=== PATIENT | male | born 1955 | race Caucasian/White ===

== ENCOUNTER 2017-08-22 07:29 | Outpatient (CLI) | payer OTHER ==
[2017-08-22 08:00] LABS: BASOPHILS # (AUTO) 0.1 10^3/uL (0.0-0.1); BASOPHILS % (AUTO) 1.1 %; EOSINOPHILS # (AUTO) 0.4 10^3/uL (0.0-0.7); EOSINOPHILS % (AUTO) 6.3 %; HGB - HEMOGLOBIN 16.4 g/dL (14.0-18.0); LYMPHOCYTES # (AUTO) 1.2 10^3/uL (1.5-3.5); MEAN CORPUSCULAR HEMOGLOBIN 30.7 pg (27.0-31.0); MEAN CORPUSCULAR HGB CONC 34.2 g/dL (32.0-36.0); MEAN CORPUSCULAR VOLUME 89.7 fL (80.0-94.0); MEAN PLATELET VOLUME 8.9 fL (7.4-11.4); MONOCYTES # (AUTO) 0.4 10^3/uL (0.0-1.0); MONOCYTES % (AUTO) 6.9 %; NEUTROPHILS # (AUTO) 3.6 10^3/uL (1.5-6.6); NEUTROPHILS % (AUTO) 63.7 %; NUCLEATED RED BLOOD CELLS AUTO 0.1 /100WBC; RED BLOOD COUNT 5.35 10^6/uL (4.70-6.10); RED CELL DISTRIBUTION WIDTH 13.4 % (12.0-15.0); UNCORRECTED WHITE BLOOD COUNT 5.6 x10^3/uL; WHITE BLOOD COUNT 5.6 x10^3/uL (4.8-10.8)
[2017-08-22 08:24] LABS: HEMOGLOBIN A1C 0.58 g/dL
[2017-08-22 09:35] LABS: BILIRUBIN,TOTAL 1.5 mg/dL (0.2-1.0); BUN - BLOOD UREA NITROGEN 13 mg/dL (6-20); CALCIUM 9.3 mg/dL (8.5-10.3); CARBON DIOXIDE - CO2 26 mmol/L (21-32); CHLORIDE 101 mmol/L (101-111); CHOL/HDL RATIO 3.6 (<5.0); CHOLESTEROL 199 mg/dL; CREATININE 0.9 mg/dL (0.6-1.2); GFR - MDRD 86 (>89); GLUCOSE 101 mg/dL (70-100); HDL CHOLESTEROL 56 mg/dL; LDL/HDL RATIO 2.1 (<3.6); POTASSIUM 4.1 mmol/L (3.5-5.0); SODIUM 136 mmol/L (135-145); TOTAL PROTEIN 6.7 g/dL (6.7-8.2); TRIGLYCERIDES 121 mg/dL; VLDL CHOLESTEROL 24 mg/dL
== END 2017-08-22 07:30 | disposition home or self-care (01) ==
LOC: LAB 07:29
PROVIDERS: ATTEND Family Medicine
DX: Z00.00 Encounter for general adult medical examination without abnormal findings (principal); I10 Essential (primary) hypertension; R73.01 Impaired fasting glucose; Z12.5 Encounter for screening for malignant neoplasm of prostate
CPT/HCPCS: 36415; 80053; 80061; 83036; 84153; 85025

== ENCOUNTER 2019-09-17 08:49 | Outpatient (CLI) | payer OTHER ==
[2019-09-17 09:32] LABS: HB2 TOTAL 16.3 g/dL; HEMOGLOBIN A1C 0.62 g/dL; HEMOGLOBIN A1C % 5.6 % (4.6-6.2)
[2019-09-17 09:33] LABS: BASOPHILS % (AUTO) 0.9 %; EOSINOPHILS # (AUTO) 0.3 10^3/uL (0.0-0.7); EOSINOPHILS % (AUTO) 5.8 %; LYMPHOCYTES # (AUTO) 0.9 10^3/uL (1.5-3.5); LYMPHOCYTES % (AUTO) 21.4 %; MEAN CORPUSCULAR HEMOGLOBIN 31.4 pg (27.0-31.0); MEAN CORPUSCULAR HGB CONC 34.1 g/dL (32.0-36.0); MEAN CORPUSCULAR VOLUME 92.1 fL (80.0-94.0); MEAN PLATELET VOLUME 10.3 fL (7.4-11.4); MONOCYTES # (AUTO) 0.4 10^3/uL (0.0-1.0); MONOCYTES % (AUTO) 8.2 %; NEUTROPHILS # (AUTO) 2.7 10^3/uL (1.5-6.6); NEUTROPHILS % (AUTO) 63.5 %; PLT - PLATELET COUNT 185 10^3/uL (130-450); RED BLOOD COUNT 5.09 10^6/uL (4.70-6.10); RED CELL DISTRIBUTION WIDTH 13.5 % (12.0-15.0); WHITE BLOOD COUNT 4.3 x10^3/uL (4.8-10.8)
[2019-09-17 09:44] LABS: ALBUMIN 4.5 g/dL (3.2-5.5); ALBUMIN/GLOBULIN RATIO 1.7 (1.0-2.2); ALKALINE PHOSPHATASE 45 IU/L (42-121); ALT ALANINE AMINOTRANSFERASE 34 IU/L (10-60); AST ASPARTATE AMINOTRANSFERASE 24 IU/L (10-42); BILIRUBIN,TOTAL 1.7 mg/dL (0.2-1.0); BUN - BLOOD UREA NITROGEN 16 mg/dL (6-20); CALCIUM 9.1 mg/dL (8.5-10.3); CARBON DIOXIDE - CO2 25 mmol/L (21-32); CHLORIDE 104 mmol/L (101-111); CHOL/HDL RATIO 3.6 (<5.0); CHOLESTEROL 189 mg/dL; CREATININE 0.8 mg/dL (0.6-1.2); GFR - MDRD 97 (>89); GLUCOSE 109 mg/dL (70-100); HDL CHOLESTEROL 53 mg/dL; LDL CHOLESTEROL,CALCULATED 116 mg/dL; LDL/HDL RATIO 2.2 (<3.6); SODIUM 136 mmol/L (135-145); TOTAL PROTEIN 7.2 g/dL (6.7-8.2); VLDL CHOLESTEROL 20 mg/dL
== END 2019-09-17 08:50 | disposition home or self-care (01) ==
LOC: LAB 08:49
PROVIDERS: ATTEND Family Medicine
DX: I10 Essential (primary) hypertension (principal); R73.01 Impaired fasting glucose; R07.89 Other chest pain; Z12.5 Encounter for screening for malignant neoplasm of prostate
CPT/HCPCS: 36415; 80053; 80061; 83036; 83721; 84153; 84443; 85025

== ENCOUNTER 2020-11-21 12:14 | Outpatient (CLI) | payer MEDICARE ==
--- NOTE | 2020-11-21 18:02 | XRAY Report ---
PROCEDURE: Wrist 4 View RT INDICATIONS: PAIN IN RT WRIST TECHNIQUE: 4 views of the wrist were acquired. COMPARISON: None FINDINGS: Bones: No fractures or dislocations. No suspicious bony lesions. Scaphoid view: Scaphoid is intact. Soft tissues: No suspicious soft tissue calcifications. IMPRESSION: No fracture. No osseous lesion. If there are persistent symptoms or continued clinical concern for pa thology, then repeat plain film radiographs (7-10 days) or advanced imaging (CT, MR, bone scan) shoul d be considered for further evaluation. Reviewed by: Janis Sahrif MD, PhD on 11/21/2020 6:01 PM PDT Approved by: Janis Sharif MD, PhD on 11/21/2020 6:01 PM PDT Station ID: [id number]
== END 2020-11-21 12:15 | disposition home or self-care (01) ==
LOC: DI 12:14
PROVIDERS: ATTEND Internal Medicine
DX: M25.531 Pain in right wrist (principal)

== ENCOUNTER 2021-06-14 07:55 | Outpatient (CLI) | payer MEDICARE ==
[2021-06-14 08:14] LABS: BASOPHILS % (AUTO) 0.8 %; EOSINOPHILS # (AUTO) 0.2 10^3/uL (0.0-0.7); EOSINOPHILS % (AUTO) 3.5 %; HCT - HEMATOCRIT 49.6 % (42.0-52.0); HGB - HEMOGLOBIN 16.9 g/dL (14.0-18.0); LYMPHOCYTES # (AUTO) 0.7 10^3/uL (1.5-3.5); LYMPHOCYTES % (AUTO) 15.4 %; MEAN CORPUSCULAR HEMOGLOBIN 31.6 pg (27.0-31.0); MEAN CORPUSCULAR HGB CONC 34.1 g/dL (32.0-36.0); MEAN CORPUSCULAR VOLUME 92.9 fL (80.0-94.0); MONOCYTES # (AUTO) 0.4 10^3/uL (0.0-1.0); MONOCYTES % (AUTO) 8.6 %; NEUTROPHILS # (AUTO) 3.4 10^3/uL (1.5-6.6); NEUTROPHILS % (AUTO) 71.3 %; PLT - PLATELET COUNT 183 10^3/uL (130-450); RED BLOOD COUNT 5.34 10^6/uL (4.70-6.10); RED CELL DISTRIBUTION WIDTH 13.2 % (12.0-15.0); WHITE BLOOD COUNT 4.8 x10^3/uL (4.8-10.8)
[2021-06-14 08:31] LABS: ALBUMIN 4.7 g/dL (3.2-5.5); ALKALINE PHOSPHATASE 53 IU/L (42-121); ALT ALANINE AMINOTRANSFERASE 33 IU/L (10-60); AST ASPARTATE AMINOTRANSFERASE 22 IU/L (10-42); BILIRUBIN,TOTAL 2.1 mg/dL (0.2-1.0); BUN - BLOOD UREA NITROGEN 14 mg/dL (6-20); CALCIUM 9.3 mg/dL (8.5-10.3); CARBON DIOXIDE - CO2 26 mmol/L (21-32); CHLORIDE 105 mmol/L (101-111); CHOLESTEROL 197 mg/dL; GFR - MDRD 75 (>89); GLUCOSE 117 mg/dL (70-100); HDL CHOLESTEROL 49 mg/dL; LDL CHOLESTEROL,CALCULATED 125 mg/dL; LDL/HDL RATIO 2.6 (<3.6); POTASSIUM 4.4 mmol/L (3.5-5.0); SODIUM 140 mmol/L (135-145); TOTAL PROTEIN 7.1 g/dL (6.7-8.2); TRIGLYCERIDES 116 mg/dL; VLDL CHOLESTEROL 23 mg/dL
[2021-06-14 08:43] LABS: THYROID STIMULATING HORMONE 3.4 uIU/mL (0.34-5.60)
[2021-06-14 09:20] LABS: CREATININE,URINE 27.1 mg/dL; MICROALBUM/CREATININE RATIO,UR 7.4 ug/mg (<30.0); MICROALBUMIN,URINE 0.2 mg/dL (0-300.0)
[2021-06-14 12:47] LABS: ESTIMATED AVERAGE GLUCOSE 105 mg/dL (70-100); HEMOGLOBIN A1c% 5.3 % (4.27-6.07)
== END 2021-06-14 07:56 | disposition home or self-care (01) ==
LOC: LAB 07:55
PROVIDERS: ATTEND Internal Medicine
DX: R73.01 Impaired fasting glucose (principal); N40.0 Benign prostatic hyperplasia without lower urinary tract symptoms
CPT/HCPCS: 36415; 80053; 80061; 82043; 82570; 83036; 83721; 84153; 84443; 85025

== ENCOUNTER 2022-03-28 08:00 | Outpatient (CLI) | payer MEDICARE ==
[2022-03-28 12:00] LABS: BASOPHILS % (AUTO) 0.3 %; EOSINOPHILS % (AUTO) 0.3 %; HCT - HEMATOCRIT 47.6 % (42.0-52.0); HGB - HEMOGLOBIN 16.2 g/dL (14.0-18.0); LYMPHOCYTES # (AUTO) 0.6 10^3/uL (1.5-3.5); LYMPHOCYTES % (AUTO) 4.8 %; MEAN CORPUSCULAR HEMOGLOBIN 31.1 pg (27.0-31.0); MEAN CORPUSCULAR VOLUME 91.4 fL (80.0-94.0); MONOCYTES # (AUTO) 0.5 10^3/uL (0.0-1.0); MONOCYTES % (AUTO) 3.8 %; NEUTROPHILS # (AUTO) 11.1 10^3/uL (1.5-6.6); NEUTROPHILS % (AUTO) 90.3 %; PLT - PLATELET COUNT 190 10^3/uL (130-450); RED BLOOD COUNT 5.21 10^6/uL (4.70-6.10); RED CELL DISTRIBUTION WIDTH 13.3 % (12.0-15.0); WHITE BLOOD COUNT 12.3 x10^3/uL (4.8-10.8)
[2022-03-28 12:06] LABS: GLUCOSE, URINE (UA) NEGATIVE (NEGATIVE); LEUKOCYTE ESTERASE, URINE NEGATIVE (NEGATIVE); OCCULT BLOOD,URINE NEGATIVE (NEGATIVE)
[2022-03-28 12:09] LABS: BILIRUBIN,URINE NEGATIVE (NEGATIVE); CLARITY,URINE SL. CLOUDY (CLEAR); ICTOTEST,URINE NEGATIVE
[2022-03-28 12:11] LABS: BACTERIA,URINE Moderate /HPF (None Seen); MUCUS,URINE Moderate Strands; RBC,URINE 0-5 /HPF (0-5); SQUAMOUS EPITHELIAL CELL,UR RARE Squamous (<= Few); WBC,URINE 0-3 /HPF (0-3)
[2022-03-28 12:17] LABS: ALBUMIN 3.9 g/dL (3.2-5.5); ALBUMIN/GLOBULIN RATIO 1.1 (1.0-2.2); BILIRUBIN,TOTAL 3.8 mg/dL (0.2-1.0); CALCIUM 9.3 mg/dL (8.5-10.3); CREATININE 0.9 mg/dL (0.6-1.2); POTASSIUM 3.7 mmol/L (3.5-5.0); TOTAL PROTEIN 7.4 g/dL (6.7-8.2)
== END 2022-03-28 23:59 | disposition home or self-care (01) ==
LOC: LAB.N 08:00
PROVIDERS: ATTEND Nurse Practitioner
DX: R10.9 Unspecified abdominal pain (principal)
CPT/HCPCS: 36415; 80053; 81001; 81003; 82150; 83690; 85025; 87086

== ENCOUNTER 2022-03-30 08:50 | Emergency (ER) | payer MEDICARE ==
[2022-03-30 09:21] LABS: CLARITY,URINE CLEAR (CLEAR); GLUCOSE, URINE (UA) NEGATIVE (NEGATIVE); KETONES,URINE (UA) TRACE mg/dL (NEGATIVE); LEUKOCYTE ESTERASE, URINE NEGATIVE (NEGATIVE); NITRITE,URINE NEGATIVE (NEGATIVE); OCCULT BLOOD,URINE SMALL (NEGATIVE); PROTEIN,URINE TRACE mg/dL (NEGATIVE); UROBILINOGEN,URINE 0.2 (NORMAL) E.U./dL (NORMAL)
--- NOTE | 2022-03-30 09:23 | ED Physician Documentation ---
PD HPI ABD PAIN - Stated complaint Stated Complaint: LOWER ABD PAIN - Chief complaint Chief Complaint: Abd Pain - History obtained from History obtained from: Patient - History of Present Illness Timing - onset: How many days ago (4) Timing - duration: Days (4 days - was camping at onset in [facility] and thought maybe bad water or food, but symptoms have persisted. Seen at Walk In 2 days ago with labs/UA but no meds Rx.) Timing - details: Gradual onset, Still present, Waxing and waning Quality: Cramping, Aching, Pain Location: Periumbilical, Suprapubic. No: Epigastric Radiation: Lower back Improved by: Laying still, Vomiting, BM. No: Eating Worsened by: Moving, Palpation. No: Eating Associated symptoms: Nausea, Vomiting (just couple of times 3-4 days ago, now with nausea.). No: Fever, Diarrhea, Constipation (has had small stools out without noted blood nor mucous.) Similar symptoms before: Has not had sx before Recently seen: Clinic (Walk In clinic 2 days ago with labs/UA done. No meds given. Patient says he had not heard results as yet.) Review of Systems Constitutional: denies: Fever, Chills Nose: denies: Rhinorrhea / runny nose, Congestion Throat: denies: Sore throat Cardiac: denies: Chest pain / pressure Respiratory: denies: Dyspnea, Cough GI: reports: Abdominal Pain, Nausea, Vomiting. denies: Constipation, Diarrhea, Bloody / black stool : denies: Dysuria, Frequency Skin: denies: Rash, Lesions Neurologic: reports: Generalized weakness. denies: Focal weakness, Near syncope, Altered mental status, Headache PD PAST MEDICAL HISTORY - Past Medical History Cardiovascular: None GI: None : Kidney stones - Past Surgical History Past Surgical History: No - Present Medications Home Medications: Ambulatory Orders Medication Instructions Recorded Confirmed Amox/Clav 875/125 [Augmentin] 1 each PO Q12H #14 tablet 03/30/22 Docusate Sodium 100Mg Capsule 100 mg PO DAILY #15 cap 03/30/22 [Colace 100Mg Capsule] HYDROcod/ACETAM 5/325 [[place] 5/325] 1 ea PO Q6H PRN #15 tablet 03/30/22 Naproxen 500 mg PO BID #20 tab.sr 03/30/22 Ondansetron Odt [Zofran] 4 mg TL Q6H PRN #10 tablet 03/30/22 - Allergies Allergies/Adverse Reactions: Allergies Allergy/AdvReac Type Severity Reaction Status Date / Time No Known Drug Allergies Allergy Verified 03/30/22 09:12 PD ED PE NORMAL - Vitals Vital signs reviewed: Yes - General General: Alert and oriented X 3, No acute distress, Well developed/nourished - HEENT HEENT: Moist mucous membranes, Pharynx benign - Neck Neck: Supple, no meningeal sign, No adenopathy - Cardiac Cardiac: RRR, No murmur - Respiratory Respiratory: Clear bilaterally - Abdomen Abdomen: Normal bowel sounds, Soft, Non distended, No organomegaly, Other (Tender in the periumbilical to left lower quadrant area in particular. Mild tender in the right. No percussion or rebound tenderness. There is some local guarding.) - Male Male : Deferred - Rectal Rectal: Deferred - Back Back: No CVA TTP - Derm Derm: Normal color, Warm and dry - Extremities Extremities: No edema, No calf tenderness / cord - Neuro Neuro: Alert and oriented X 3, No motor deficit, Normal speech Results - Vitals Vitals: Vital Signs - 24 hr 03/30/22 09:07 Temperature 36.1 C L Heart Rate 87 Respiratory 16 Rate Blood Pressure 141/79 H O2 Saturation 98 Oxygen O2 Source Room air - Labs Labs: Laboratory Tests 03/30/22 03/30/22 03/30/22 09:12 09:21 09:21 WBC 6.4 RBC 5.38 Hgb 16.5 Hct 48.9 MCV 90.9 MCH 30.7 MCHC 33.7 RDW 13.2 Plt Count 241 MPV 9.8 Neut # (Auto) 5.0 Lymph # (Auto) 0.7 L [place] # (Auto) 0.6 Eos # (Auto) 0.2 Baso # (Auto) 0.0 Absolute Nucleated RBC 0.00 Nucleated RBC % 0.0 Sodium 141 Potassium 3.5 Chloride 103 Carbon Dioxide 28 Anion Gap 10.0 BUN 20 Creatinine 0.9 Estimated GFR (MDRD) 84 L Glucose 156 H Calcium 9.5 Total Bilirubin 1.6 H AST 38 ALT 71 H Alkaline Phosphatase 80 Total Protein 7.8 Albumin 3.8 Globulin 4.0 Albumin/Globulin Ratio 1.0 Lipase 35 Urine Color DARK YELLOW Urine Clarity CLEAR Urine pH 6.0 Ur Specific Fidelity 1.025 Urine Protein TRACE Urine Glucose (UA) NEGATIVE Urine Ketones TRACE Urine Occult Blood SMALL H Urine Nitrite NEGATIVE Urine Bilirubin NEGATIVE Urine Urobilinogen 0.2 (NORMAL) Ur Leukocyte Esterase NEGATIVE Urine RBC 11-25 H Urine WBC 0-3 Ur Squamous Epith Cells RARE Squamous Urine Bacteria Few Urine Mucus Moderate Strands Ur Microscopic Review INDICATED Urine Culture Comments NOT INDICATED - Rads (name of study) abd/pelvic CT Radiology: Prelim report reviewed, See rad report (sigmoid diverticulitis. Terminal ileum is normal. No kidney stones. ) PD MEDICAL DECISION MAKING - ED course Complexity details: reviewed results (Given duration of symptoms and degree of pain, after discussion with the patient, shared decision was for anti- inflammatories and also to add antibiotics.), re-evaluated patient (improved well with IV meds. ), considered differential, d/w patient Departure - Departure Disposition: 01 Home, Self Care Clinical Impression: Sigmoid diverticulitis Abdominal pain Qualifiers: Abdominal location: lower abdomen, unspecified Qualified Code(s): R10.30 - Lower abdominal pain, unspecified Condition: Stable Instructions: ED Diverticulitis Follow-Up: Luis Felipe Acuna MD [Primary Care Provider] - Prescriptions: Amox/Clav 875/125 [Augmentin] 1 each PO Q12H #14 tablet Docusate Sodium 100Mg Capsule [Colace 100Mg Capsule] 100 mg PO DAILY #15 cap Naproxen 500 mg PO BID #20 tab.sr HYDROcod/ACETAM 5/325 [[place] 5/325] 1 ea PO Q6H PRN #15 tablet PRN Reason: Pain Ondansetron Odt [Zofran] 4 mg TL Q6H PRN #10 tablet PRN Reason: Nausea / Vomiting Comments: Your CT scan shows an area of infection of a diverticulum in the sigmoid area (sigmoid diverticulitis). No kidney stones are seen. Your appendix area appears normal. There is no signs of perforation or abscess around the diverticulitis. This would typically get treated with some mild stool softener along with anti- inflammatories and staying well-hydrated. We can add Augmentin antibiotic twice daily. To this add ondansetron/Zofran every 6 hours if needed for nausea and Tylenol or hydrocodone/acetaminophen if needed for worse pain. I would anticipate improvement over the next 2 to 3 days and resolution by 3 to 5 days. You can resume your normal fiber supplement. Recheck if not improving in that timeframe and return if worse. It transmitted your prescriptions to [facility] pharmacy in [place]. I am prescribing a short course of narcotic pain medication for you. These are potentially dangerous and addictive medications that should be used carefully. These medications may constipate you. Take an umoc-evi-mibtaab stool softener such as docusate twice daily with plenty of water while taking these medications. If you go 24 hours without a bowel movement, take mxbi-tby-rflocht MiraLAX, per package instructions. Do not drink or drive while taking these medications. If you received narcotic or sedating medications while in the emergency department do not drive for 24 hours. Store this medication in a safe, secure place and out of reach of children. It is a violation of federal law to give or sell this medication to another person or to use in a manner other than prescribed. The ED will not refill narcotic prescriptions, including prescriptions lost or stolen. You can dispose of unwanted medications at the [facility]'s office or at several pharmacies such as [facility].
[2022-03-30 09:24] LABS: BILIRUBIN,URINE NEGATIVE (NEGATIVE); ICTOTEST,URINE NEGATIVE
[2022-03-30 09:31] LABS: BASOPHILS % (AUTO) 0.5 %; EOSINOPHILS # (AUTO) 0.2 10^3/uL (0.0-0.7); EOSINOPHILS % (AUTO) 2.6 %; HCT - HEMATOCRIT 48.9 % (42.0-52.0); HGB - HEMOGLOBIN 16.5 g/dL (14.0-18.0); LYMPHOCYTES # (AUTO) 0.7 10^3/uL (1.5-3.5); LYMPHOCYTES % (AUTO) 10.1 %; MEAN CORPUSCULAR HEMOGLOBIN 30.7 pg (27.0-31.0); MEAN CORPUSCULAR HGB CONC 33.7 g/dL (32.0-36.0); MEAN CORPUSCULAR VOLUME 90.9 fL (80.0-94.0); MEAN PLATELET VOLUME 9.8 fL (7.4-11.4); MONOCYTES # (AUTO) 0.6 10^3/uL (0.0-1.0); MONOCYTES % (AUTO) 9.3 %; NEUTROPHILS % (AUTO) 77.2 %; PLT - PLATELET COUNT 241 10^3/uL (130-450); RED BLOOD COUNT 5.38 10^6/uL (4.70-6.10); RED CELL DISTRIBUTION WIDTH 13.2 % (12.0-15.0); WHITE BLOOD COUNT 6.4 x10^3/uL (4.8-10.8)
[2022-03-30 09:35] LABS: BACTERIA,URINE Few /HPF (None Seen); MUCUS,URINE Moderate Strands; SQUAMOUS EPITHELIAL CELL,UR RARE Squamous (<= Few); WBC,URINE 0-3 /HPF (0-3)
[2022-03-30 09:50] LABS: ALBUMIN 3.8 g/dL (3.2-5.5); BILIRUBIN,TOTAL 1.6 mg/dL (0.2-1.0); CALCIUM 9.5 mg/dL (8.5-10.3); CREATININE 0.9 mg/dL (0.6-1.2); POTASSIUM 3.5 mmol/L (3.5-5.0); TOTAL PROTEIN 7.8 g/dL (6.7-8.2)
[2022-03-30] MEDS ORDERED: KETOROLAC 15 MG/ML VIAL IVP STA (09:50)
[2022-03-30] MEDS ORDERED: SODIUM CHLORIDE 0.9% 1,000 ML IV STA (09:50)
[2022-03-30] MEDS ORDERED: HYDROmorphone 0.5 MG/0.5 ML SYRINGE IVP STA (09:50)
[2022-03-30] MEDS ORDERED: ONDANSETRON 4 MG/2 ML VIAL IVP STA (09:50)
--- NOTE | 2022-03-30 10:22 | CT Report ---
PROCEDURE: Abdomen/Pelvis WO INDICATIONS: lower abd pain 4 days TECHNIQUE: After the administration of contrast, 5 mm thick sections acquired from the diaphragms to the sym physis. 5 mm thick coronal and sagittal reformats were acquired. For radiation dose reduction, the following was used: automated exposure control, adjustment of mA and/or kV according to patient size . COMPARISON: None. FINDINGS: Image quality: Excellent. ABDOMEN: Lung bases: Lung bases are clear. Heart size is normal. Solid organs: Liver: The liver has no mass or intrahepatic biliary ductal dilatation. The portal vein and hepatic veins are patent. Biliary: The gallbladder has no gallstones, pericholecystic fluid, gallbladder wall thickening, or gutierrez rrounding inflammatory change. Pancreas: The pancreas has no mass or ductal dilatation. No surrounding inflammation. Spleen: Normal size. No mass. Adrenal glands: No hypertrophy or nodules. Kidneys: No obstructive calculus or hydronephrosis. No solid mass. No cystic mass. Bowel: The distal esophagus and stomach are normal. The small bowel has a normal caliber and appeara nce. The terminal ileum is normal. There is diverticulosis in the left colon and sigmoid colon with surrounding inflammation in the proximal sigmoid colon consistent with acute diverticulitis. No evid ence of perforation or abscess. Free air/free fluid: No free air or free fluid. Abdominal wall: No abdominal wall mass or hernia. Retroperitoneum: No retroperitoneal or mesenteric adenopathy by size criteria. Aorta and inferior ve na cava are normal in size. Lymph nodes: No adenopathy. Bones: No suspicious bony lesions. No vertebral body compression fractures. PELVIS: Genitourinary: Bladder wall thickness is normal. Miscellaneous: No inguinal hernias or adenopathy. Bones: No suspicious bony lesions. No vertebral body compression fractures. IMPRESSION: Acute diverticulitis of the sigmoid colon without evidence of perforation or abscess. Reviewed by: Gavin Roman on 03/30/2022 10:21 AM PDT Approved by: Gavin Roman on 03/30/2022 10:21 AM PDT Station ID: [id number]
[2022-03-30] MEDS ORDERED: AMOX/CLAV 875 MG/125 MG TABLET PO STA (10:53)
[2022-03-30 11:24] VITALS: BP 122/84
== END 2022-03-30 11:27 | disposition home or self-care (01) ==
LOC: ED 08:50
DX: K57.32 Diverticulitis of large intestine without perforation or abscess without bleeding (principal)
CPT/HCPCS: 36415; 74176; 80053; 81001; 83690; 85025; 96374; 99284; A9270; J1170; 81003; 87086

== ENCOUNTER 2022-07-18 17:17 | Outpatient (CLI) | payer MEDICARE ==
[2022-07-18 17:39] LABS: BASOPHILS # (AUTO) 0.1 10^3/uL (0.0-0.1); BASOPHILS % (AUTO) 0.9 %; EOSINOPHILS # (AUTO) 0.3 10^3/uL (0.0-0.7); EOSINOPHILS % (AUTO) 4.3 %; HCT - HEMATOCRIT 50.5 % (42.0-52.0); HGB - HEMOGLOBIN 16.5 g/dL (14.0-18.0); LYMPHOCYTES # (AUTO) 1.7 10^3/uL (1.5-3.5); LYMPHOCYTES % (AUTO) 26.1 %; MEAN CORPUSCULAR HEMOGLOBIN 29.7 pg (27.0-31.0); MEAN CORPUSCULAR HGB CONC 32.7 g/dL (32.0-36.0); MEAN CORPUSCULAR VOLUME 90.8 fL (80.0-94.0); MEAN PLATELET VOLUME 9.8 fL (7.4-11.4); MONOCYTES # (AUTO) 0.5 10^3/uL (0.0-1.0); NEUTROPHILS % (AUTO) 61.4 %; PLT - PLATELET COUNT 210 10^3/uL (130-450); RED BLOOD COUNT 5.56 10^6/uL (4.70-6.10); RED CELL DISTRIBUTION WIDTH 13.9 % (12.0-15.0); WHITE BLOOD COUNT 6.5 x10^3/uL (4.8-10.8)
[2022-07-18 17:58] LABS: CREATININE,URINE 150.4 mg/dL; MICROALBUMIN,URINE 0.6 mg/dL (0-300.0)
[2022-07-18 17:58] LABS: ALBUMIN 4.7 g/dL (3.2-5.5); ALBUMIN/GLOBULIN RATIO 1.5 (1.0-2.2); ALKALINE PHOSPHATASE 52 IU/L (42-121); ALT ALANINE AMINOTRANSFERASE 48 IU/L (10-60); AST ASPARTATE AMINOTRANSFERASE 29 IU/L (10-42); BILIRUBIN,TOTAL 2.5 mg/dL (0.2-1.0); BUN - BLOOD UREA NITROGEN 18 mg/dL (6-20); CALCIUM 9.2 mg/dL (8.5-10.3); CARBON DIOXIDE - CO2 25 mmol/L (21-32); CHLORIDE 101 mmol/L (101-111); CHOL/HDL RATIO 4.3 (<5.0); CHOLESTEROL 234 mg/dL; CREATININE 0.9 mg/dL (0.6-1.2); GFR - MDRD 84 (>89); GLUCOSE 92 mg/dL (70-100); HDL CHOLESTEROL 54 mg/dL; LDL CHOLESTEROL,CALCULATED 156 mg/dL; LDL/HDL RATIO 2.9 (<3.6); POTASSIUM 3.9 mmol/L (3.5-5.0); SODIUM 137 mmol/L (135-145); TOTAL PROTEIN 7.9 g/dL (6.7-8.2); TRIGLYCERIDES 122 mg/dL; VLDL CHOLESTEROL 24 mg/dL
[2022-07-18 20:30] LABS: ESTIMATED AVERAGE GLUCOSE 111 mg/dL (70-100); HEMOGLOBIN A1c% 5.5 % (4.27-6.07)
== END 2022-07-18 17:18 | disposition home or self-care (01) ==
LOC: LAB 17:17
PROVIDERS: ATTEND Internal Medicine
DX: R73.01 Impaired fasting glucose (principal); Z13.220 Encounter for screening for lipoid disorders; N40.1 Benign prostatic hyperplasia with lower urinary tract symptoms; Z13.0 Encounter for screening for diseases of the blood and blood-forming organs and certain disorders involving the immune mechanism
CPT/HCPCS: 36415; 80053; 80061; 82043; 82570; 83036; 83721; 84153; 85025

== ENCOUNTER 2022-10-08 14:46 | Outpatient (CLI) | payer MEDICARE ==
[2022-10-08 15:10] LABS: BASOPHILS # (AUTO) 0.1 10^3/uL (0.0-0.1); BASOPHILS % (AUTO) 0.9 %; EOSINOPHILS # (AUTO) 0.2 10^3/uL (0.0-0.7); EOSINOPHILS % (AUTO) 2.2 %; HGB - HEMOGLOBIN 14.7 g/dL (14.0-18.0); LYMPHOCYTES # (AUTO) 1.3 10^3/uL (1.5-3.5); LYMPHOCYTES % (AUTO) 18.3 %; MEAN CORPUSCULAR HEMOGLOBIN 29.7 pg (27.0-31.0); MEAN CORPUSCULAR VOLUME 92.9 fL (80.0-94.0); MONOCYTES # (AUTO) 0.5 10^3/uL (0.0-1.0); MONOCYTES % (AUTO) 6.9 %; NEUTROPHILS # (AUTO) 4.9 10^3/uL (1.5-6.6); NEUTROPHILS % (AUTO) 71.3 %; PLT - PLATELET COUNT 257 10^3/uL (130-450); RED BLOOD COUNT 4.95 10^6/uL (4.70-6.10); RED CELL DISTRIBUTION WIDTH 13.8 % (12.0-15.0); WHITE BLOOD COUNT 6.9 x10^3/uL (4.8-10.8)
[2022-10-08 15:16] LABS: ALBUMIN 4.2 g/dL (3.2-5.5); ALBUMIN/GLOBULIN RATIO 1.3 (1.0-2.2); BILIRUBIN,TOTAL 1.3 mg/dL (0.2-1.0); CALCIUM 9.5 mg/dL (8.5-10.3); CRP - C-REACTIVE PROTEIN 1.2 mg/dL (0-1.0); POTASSIUM 3.8 mmol/L (3.5-5.0); TOTAL PROTEIN 7.4 g/dL (6.7-8.2)
== END 2022-10-08 14:47 | disposition home or self-care (01) ==
LOC: LAB 14:46
PROVIDERS: ATTEND Nurse Practitioner
DX: M25.50 Pain in unspecified joint (principal); U09.9 Post COVID-19 condition, unspecified
CPT/HCPCS: 36415; 80053; 85025; 85379; 85651; 86140

== ENCOUNTER 2022-10-24 16:42 | Outpatient (CLI) | payer MEDICARE ==
[2022-10-24 17:15] LABS: BASOPHILS % (AUTO) 0.6 %; EOSINOPHILS # (AUTO) 0.2 10^3/uL (0.0-0.7); EOSINOPHILS % (AUTO) 2.8 %; HCT - HEMATOCRIT 46.2 % (42.0-52.0); HGB - HEMOGLOBIN 14.9 g/dL (14.0-18.0); LYMPHOCYTES # (AUTO) 1.5 10^3/uL (1.5-3.5); LYMPHOCYTES % (AUTO) 22.3 %; MEAN CORPUSCULAR HEMOGLOBIN 29.4 pg (27.0-31.0); MEAN CORPUSCULAR HGB CONC 32.3 g/dL (32.0-36.0); MEAN CORPUSCULAR VOLUME 91.3 fL (80.0-94.0); MEAN PLATELET VOLUME 9.9 fL (7.4-11.4); MONOCYTES # (AUTO) 0.5 10^3/uL (0.0-1.0); MONOCYTES % (AUTO) 7.3 %; NEUTROPHILS # (AUTO) 4.4 10^3/uL (1.5-6.6); NEUTROPHILS % (AUTO) 66.6 %; PLT - PLATELET COUNT 278 10^3/uL (130-450); RED BLOOD COUNT 5.06 10^6/uL (4.70-6.10); WHITE BLOOD COUNT 6.7 x10^3/uL (4.8-10.8)
[2022-10-24 17:30] LABS: ALBUMIN 4.4 g/dL (3.2-5.5); ALBUMIN/GLOBULIN RATIO 1.4 (1.0-2.2); ALKALINE PHOSPHATASE 60 IU/L (42-121); ALT ALANINE AMINOTRANSFERASE 25 IU/L (10-60); AST ASPARTATE AMINOTRANSFERASE 19 IU/L (10-42); BILIRUBIN,TOTAL 1.3 mg/dL (0.2-1.0); BUN - BLOOD UREA NITROGEN 18 mg/dL (6-20); CALCIUM 9.9 mg/dL (8.5-10.3); CARBON DIOXIDE - CO2 25 mmol/L (21-32); CHLORIDE 99 mmol/L (101-111); CREATININE 0.9 mg/dL (0.6-1.2); GFR - MDRD 84 (>89); GLUCOSE 95 mg/dL (70-100); POTASSIUM 4.2 mmol/L (3.5-5.0); SODIUM 136 mmol/L (135-145); TOTAL PROTEIN 7.6 g/dL (6.7-8.2)
[2022-10-24 18:08] LABS: CRP - C-REACTIVE PROTEIN < 1.0 mg/dL (0-1.0)
[2022-10-24 18:13] LABS: RHEUMATOID FACTOR NEGATIVE (Negative)
--- NOTE | 2022-10-25 08:35 | XRAY Report ---
PROCEDURE: Shoulder 3 View RT INDICATIONS: PAIN IN RIGHT SHOULDER TECHNIQUE: 3 views of the shoulder were acquired. COMPARISON: None. FINDINGS: Bones: No fractures or dislocations. Moderate acromioclavicular joint osteoarthritic changes are see n with joint space narrowing, subchondral sclerosis and downward osteophyte formation. Mild to modera te glenohumeral joint osteoarthritis is also noted. No suspicious bony lesions. Visualized ribs maximo ear intact. Soft tissues: No suspicious soft tissue calcifications. IMPRESSION: Moderate acromioclavicular joint osteoarthritis and mild to moderate glenohumeral joint osteoarthritis. No fracture or dislocation. No gross soft tissue abnormalities. Reviewed by: Brian Weston MD on 10/25/2022 8:34 AM PST Approved by: Brian Weston MD on 10/25/2022 8:34 AM PST Station ID: [id number]
== END 2022-10-24 16:43 | disposition home or self-care (01) ==
LOC: LAB 16:42
PROVIDERS: ATTEND Internal Medicine
DX: R73.01 Impaired fasting glucose (principal); M25.50 Pain in unspecified joint; M25.511 Pain in right shoulder; M19.011 Primary osteoarthritis, right shoulder
CPT/HCPCS: 36415; 80053; 81599; 85025; 85651; 86038; 86140; 86200; 86430

== ENCOUNTER 2022-12-26 15:54 | Outpatient (CLI) | payer MEDICARE ==
--- NOTE | 2022-12-26 16:36 | XRAY Report ---
PROCEDURE: Hips 2V BILAT INDICATIONS: HIP JOIT PAIN TECHNIQUE: 2 views of the hip were acquired. COMPARISON: None. FINDINGS: Bones: No fractures or dislocations. No suspicious bony lesions. Moderate degenerative narrowing of the hip joints bilaterally. No erosions. Soft tissues: No suspicious soft tissue calcifications or masses. IMPRESSION: Moderate bilateral hip arthritic change. Reviewed by: Mariah Martinez MD on 12/26/2022 4:35 PM PDT Approved by: Mariah Martinez MD on 12/26/2022 4:35 PM PDT Station ID: [id number]
== END 2022-12-26 15:55 | disposition home or self-care (01) ==
LOC: DI 15:54
PROVIDERS: ATTEND Internal Medicine
DX: M16.0 Bilateral primary osteoarthritis of hip (principal)

== ENCOUNTER 2023-03-16 03:23 | Emergency (ER) | payer MEDICARE ==
--- OUTSIDE RECORDS SUMMARY | 2023-03-16 03:31 | EXTERNAL MEDICAL SUMMARY RPT | Continuity of Care Document ---
Author Name Unknown Address [address] [place] [address] Phone Organization [facility] Address [address] [place] [address] Phone Problems date description facility 2023-02-12 18:18 Impingement syndrome of right s [facility] 2023-02-13 09:21 Impingement syndrome of right s [facility] Results/Labs test date author facility value unit interpretation Result panel 1 (unknown) (no date) (unknown) (unknown) (no value) (units unknown) (unknown) (unknown) (no date) (unknown) (unknown) 02/13/23 (units unknown) (unknown) (unknown) (no date) (unknown) (unknown) 1. Supraspinat us and infraspinatus tendinopathy with superimposed partial (units unknown) (unknown) (unknown) (no date) (unknown) (unknown) [address] [place] [address] (un its unknown) (unknown) (unknown) (no date) (unknown) (unknown) 2. Acromioclav icular joint osteoarthritis. (units unknown) (unknown) (unknown) (no date) (unknown) (unknown) 3. Posterior l abral tearing. (units unknown) (unknown) (unknown) (no date) (unknown) (unknown) Accession Numb er: [id number] (units unknown) (unknown) (unknown) (no date) (unknown) (unknown) Age/Sex: 67 / M Date of Service: (units unknown) (unknown) (unknown) (no date) (unknown) (unknown) JUANA Murphy [id number] (units unknown) (unknown) (unknown) (no date) (unknown) (unknown) Approved by: Antolin Miles M.D. on 02/13/2023 at 10:40 (units unknown) (unknown) (unknown) (no date) (unknown) (unknown) Bones and burs ae: No bone marrow contusions or fractures. Moderate (units unknown) (unknown) (unknown) (no date) (unknown) (unknown) COMPARISON: None. (u nits unknown) (unknown) (unknown) (no date) (unknown) (unknown) Capsule and so ft tissues: There is undercutting of the posterior labrum. The (units unknown) (unknown) (unknown) (no date) (unknown) (unknown) : Acct:[id number] (units unknown) (unknown) (unknown) (no date) (unknown) (unknown) Dictated by: Antolin Miles M.D. on 02/13/2023 at 10:38 (units unknown) (unknown) (unknown) (no date) (unknown) (unknown) FINDINGS: (units unknown) (unknown) (unknown) (no date) (unknown) (unknown) IMPRESSION: (units unknown) (unknown) (unknown) (no date) (unknown) (unknown) INDICATIONS: Impingement syndrome of right shoulder (units unknown) (unknown) (unknown) (no date) (unknown) (unknown) Image quality: Excellent. (units unknown) (unknown) (unknown) (no date) (unknown) (unknown) [facility] (uni ts unknown) (unknown) (unknown) (no date) (unknown) (unknown) Loc: MRI (units unknown) (unknown) (unknown) (no date) (unknown) (unknown) [id number] (units unknown) (unknown) (unknown) (no date) (unknown) (unknown) Magnetic Reson ance Report (units unknown) (unknown) (unknown) (no date) (unknown) (unknown) Noncontrast ob lique coronal T2 fast spin echo with fat saturation, oblique (units unknown) (unknown) (unknown) (no date) (unknown) (unknown) Ordering Provi sumeet: Arron Rey MD (units unknown) (unknown) (unknown) (no date) (unknown) (unknown) PROCEDURE: MR SHOULDER RT WO CON (units unknown) (unknown) (unknown) (no date) (unknown) (unknown) Patient: Ruy Salter MR#: (units unknown) (unknown) (unknown) (no date) (unknown) (unknown) Procedure: MR shoulder RT wo con (units unknown) (unknown) (unknown) (no date) (unknown) (unknown) Rotator cuff: There is moderate T2 signal elevation diffusely throughout the (units unknown) (unknown) (unknown) (no date) (unknown) (unknown) Signed (units unknown) (unknown) (unknown) (no date) (unknown) (unknown) TECHNIQUE: (units unknown) (unknown) (unknown) (no date) (unknown) (unknown) acromiale. No pathologic subacromial-subdeltoid or subcoracoid bursal fluid is (units unknown) (unknown) (unknown) (no date) (unknown) (unknown) acromioclavicular (u nits unknown) (unknown) (unknown) (no date) (unknown) (unknown) anterior infra spinatus tendon at the humeral insertion site. Subscapularis and (units unknown) (unknown) (unknown) (no date) (unknown) (unknown) appears normal , without fibrosis. The coracohumeral ligament is normal in (units unknown) (unknown) (unknown) (no date) (unknown) (unknown) as the (units unknown) (unknown) (unknown) (no date) (unknown) (unknown) echo with fat saturation through the shoulder. (units unknown) (unknown) (unknown) (no date) (unknown) (unknown) fast spin (units unknown) (unknown) (unknown) (no date) (unknown) (unknown) grade (units unknown) (unknown) (unknown) (no date) (unknown) (unknown) interval (units unknown) (unknown) (unknown) (no date) (unknown) (unknown) intrasubstance tearing of the anterior, mid, and posterior supraspinatus as well (units unknown) (unknown) (unknown) (no date) (unknown) (unknown) joint degenera tion. The acromion demonstrates conventional anatomy, without an (units unknown) (unknown) (unknown) (no date) (unknown) (unknown) long head (units unknown) (unknown) (unknown) (no date) (unknown) (unknown) minor tendons are intact. No rotator cuff atrophy. (units unknown) (unknown) (unknown) (no date) (unknown) (unknown) musculotendino us junctions, indicating tendinopathy. Superimposed moderate (units unknown) (unknown) (unknown) (no date) (unknown) (unknown) of the biceps tendon demonstrates normal location and morphology. The rotator (units unknown) (unknown) (unknown) (no date) (unknown) (unknown) os (units unknown) (unknown) (unknown) (no date) (unknown) (unknown) present. (units unknown) (unknown) (unknown) (no date) (unknown) (unknown) sagittal T1 (units unknown) (unknown) (unknown) (no date) (unknown) (unknown) spin echo and T2 fast spin echo with fat saturation, axial T1 spin echo and T2 (units unknown) (unknown) (unknown) (no date) (unknown) (unknown) supraspinatus and infraspinatus tendons at the humeral insertion sites extending (units unknown) (unknown) (unknown) (no date) (unknown) (unknown) tearing. No full-thickness rotator cuff tear. (units unknown) (unknown) (unknown) (no date) (unknown) (unknown) teres (units unknown) (unknown) (unknown) (no date) (unknown) (unknown) thickness (units unknown) (unknown) (unknown) (no date) (unknown) (unknown) thickness. (units unknown) (unknown) (unknown) (no date) (unknown) (unknown) to the (units unknown) (unknown)
[2023-03-16] MEDS ORDERED: SODIUM CHLORIDE 0.9% 1,000 ML IV STA ×3 (03:44→14:36)
[2023-03-16] MEDS ORDERED: ONDANSETRON 4 MG/2 ML VIAL IVP STA ×2 (03:44→10:26)
[2023-03-16 03:51] LABS: BASOPHILS % (AUTO) 0.3 %; EOSINOPHILS % (AUTO) 0.1 %; HCT - HEMATOCRIT 53.8 % (42.0-52.0); HGB - HEMOGLOBIN 18.5 g/dL (14.0-18.0); LYMPHOCYTES % (AUTO) 6.4 %; MEAN CORPUSCULAR HEMOGLOBIN 30.7 pg (27.0-31.0); MEAN CORPUSCULAR HGB CONC 34.4 g/dL (32.0-36.0); MEAN CORPUSCULAR VOLUME 89.2 fL (80.0-94.0); MEAN PLATELET VOLUME 10.8 fL (7.4-11.4); MONOCYTES % (AUTO) 6.2 %; NEUTROPHILS % (AUTO) 86.6 %; PLT - PLATELET COUNT 334 10^3/uL (130-450); RED BLOOD COUNT 6.03 10^6/uL (4.70-6.10); RED CELL DISTRIBUTION WIDTH 15.9 % (12.0-15.0); WHITE BLOOD COUNT 21.2 x10^3/uL (4.8-10.8)
[2023-03-16 03:54] LABS: ABNORMAL LYMPHS % (MANUAL) 0 %
[2023-03-16] MEDS ORDERED: HYDROmorphone 1 MG/ML CARPUJECT IVP STA ×4 (04:00→13:43)
[2023-03-16] MEDS ORDERED: iohexoL-300 100 ML VIAL ONE (04:08)
[2023-03-16 04:32] LABS: ALBUMIN 4.8 g/dL (3.2-5.5); ALBUMIN/GLOBULIN RATIO 1.4 (1.0-2.2); ALKALINE PHOSPHATASE 61 IU/L (42-121); ALT ALANINE AMINOTRANSFERASE 115 IU/L (10-60); AST ASPARTATE AMINOTRANSFERASE 129 IU/L (10-42); BILIRUBIN,TOTAL 3.3 mg/dL (0.2-1.0); BUN - BLOOD UREA NITROGEN 18 mg/dL (6-20); CARBON DIOXIDE - CO2 26 mmol/L (21-32); CHLORIDE 100 mmol/L (101-111); CREATININE 1.2 mg/dL (0.6-1.2); GFR - MDRD 60 (>89); GLUCOSE 218 mg/dL (70-100); LIPASE > 4800 U/L (22-51); SODIUM 141 mmol/L (135-145); TOTAL PROTEIN 8.2 g/dL (6.7-8.2)
[2023-03-16 04:38] LABS: BAND NEUTROPHILS % (MANUAL) 6 %; DIFFERENTIAL COMMENT MANUAL DIFFERENTIAL; LYMPHOCYTES # (MANUAL) 1.7 10^3/uL (1.5-3.5); LYMPHOCYTES % (MANUAL) 8 %; MONOCYTES # (MANUAL) 1.1 10^3/uL (0.0-1.0); NEUTROPHILS # (MANUAL) 18.4 10^3/uL (1.5-6.6); PLATELET ESTIMATE, MANUAL NORMAL (130-450,000) (NORMAL); RBC MORPHOLOGY (MULTIPLE) NORMAL APPEARANCE (NORMAL)
[2023-03-16] MEDS ORDERED: cefTRIAXone 1 GM in SODIUM CHLORIDE 0.9% MINIBAG 100 ML IV STA (05:00)
[2023-03-16] MEDS ORDERED: cefTRIAXone 1 GM VIAL ONE (05:19)
--- NOTE | 2023-03-16 05:56 | ED Physician Documentation ---
History of Present Illness - Stated complaint Stated Complaint: NAUSEA/ABD PX - Chief complaint Chief Complaint: Abd Pain - Additonal information Additional information: Patient 67-year-old male past medical significant for diverticulitis and kidney stones presenting with chief complaint abdominal pain. Began at around midnight this evening. Reports pain started lower but has now spread throughout the entire abdomen. Nausea without vomiting. No diarrhea. No fever. Denies previous surgical history. Last p.o. intake was last night. Does report drinks 2 alcoholic beverages daily. Review of Systems Constitutional: denies: Fever Eyes: denies: Loss of vision Ears: denies: Loss of hearing Nose: denies: Rhinorrhea / runny nose Throat: denies: Dental pain / toothache Cardiac: denies: Chest pain / pressure GI: reports: Abdominal Pain, Nausea, Vomiting. denies: Constipation, Diarrhea : denies: Dysuria Skin: denies: Rash Musculoskeletal: denies: Neck pain PD PAST MEDICAL HISTORY - Past Medical History Cardiovascular: None GI: None : Kidney stones - Past Surgical History Past Surgical History: No - Present Medications Home Medications: Ambulatory Orders Medication Instructions Recorded Confirmed Amox/Clav 875/125 [Augmentin] 1 each PO Q12H #14 tablet 03/30/22 Docusate Sodium 100Mg Capsule 100 mg PO DAILY #15 cap 03/30/22 [Colace 100Mg Capsule] HYDROcod/ACETAM 5/325 [[place] 5/325] 1 ea PO Q6H PRN #15 tablet 03/30/22 Naproxen 500 mg PO BID #20 tab.sr 03/30/22 Ondansetron Odt [Zofran] 4 mg TL Q6H PRN #10 tablet 03/30/22 - Allergies Allergies/Adverse Reactions: Allergies Allergy/AdvReac Type Severity Reaction Status Date / Time No Known Drug Allergies Allergy Verified 03/30/22 09:12 - Social History Does the pt smoke?: No Smoking Status: Never smoker Does the pt drink ETOH?: Yes PD ED PE NORMAL - Vitals Vital signs reviewed: Yes - General General: Alert and oriented X 3, Well developed/nourished - HEENT HEENT: Atraumatic, PERRL, EOMI, Ears normal, Moist mucous membranes - Neck Neck: Supple, no meningeal sign, No JVD - Cardiac Cardiac: RRR, No murmur - Respiratory Respiratory: No respiratory distress, Clear bilaterally - Abdomen Abdomen: Other (Significant diffuse tenderness with guarding) - Male Male : Deferred - Rectal Rectal: Deferred - Back Back: No CVA TTP - Extremities Extremities: No deformity - Neuro Neuro: Alert and oriented X 3, psychologist counseling 2-12 intact, No motor deficit, No sensory deficit, Normal speech Results - Vitals Vitals: Oxygen O2 Source Room air - Labs Labs: Laboratory Tests 03/16/23 03/16/23 03/16/23 03:45 03:45 03:45 WBC 21.2 H RBC 6.03 Hgb 18.5 H Hct 53.8 H MCV 89.2 MCH 30.7 MCHC 34.4 RDW 15.9 H Plt Count 334 MPV 10.8 Neut # (Auto) Not Reportable Lymph # (Auto) Not Reportable [place]mullen # (Auto) Not Reportable Eos # (Auto) Not Reportable Baso # (Auto) Not Reportable Absolute Nucleated RBC Not Reportable Total Counted 100 Band Neuts % (Manual) 6 Abnorm Lymph % (Manual) 0 Nucleated RBC % Not Reportable Neutrophils # (Manual) 18.4 H Lymphocytes # (Manual) 1.7 Monocytes # (Manual) 1.1 H Eosinophils # (Manual) 0.0 Basophils # (Manual) 0.0 Differential Comment MANUAL DIFFERENTIAL Platelet Estimate NORMAL (130-450,000) RBC Morph Micro Appear NORMAL APPEARANCE Sodium 141 Potassium 4.0 Chloride 100 L Carbon Dioxide 26 Anion Gap 15.0 H BUN 18 Creatinine 1.2 Estimated GFR (MDRD) 60 L Glucose 218 H Lactic Acid Calcium 10.0 Total Bilirubin 3.3 H AST 129 H ALT 115 H Alkaline Phosphatase 61 Total Protein 8.2 Albumin 4.8 Globulin 3.3 Albumin/Globulin Ratio 1.4 Lipase > 4800 H Ethyl Alcohol < 5.0 03/16/23 04:11 WBC RBC Hgb Hct MCV MCH MCHC RDW Plt Count MPV Neut # (Auto) Lymph # (Auto) [place]mullen # (Auto) Eos # (Auto) Baso # (Auto) Absolute Nucleated RBC Total Counted Band Neuts % (Manual) Abnorm Lymph % (Manual) Nucleated RBC % Neutrophils # (Manual) Lymphocytes # (Manual) Monocytes # (Manual) Eosinophils # (Manual) Basophils # (Manual) Differential Comment Platelet Estimate RBC Morph Micro Appear Sodium Potassium Chloride Carbon Dioxide Anion Gap BUN Creatinine Estimated GFR (MDRD) Glucose Lactic Acid 4.7 H* Calcium Total Bilirubin AST ALT Alkaline Phosphatase Total Protein Albumin Globulin Albumin/Globulin Ratio Lipase Ethyl Alcohol PD Medical Decision Making - ED course Complexity details: reviewed results, re-evaluated patient, considered differential, d/w patient ED course: Patient is 67-year-old male presenting to the emergency department with acute onset abdominal pain. Afebrile, hemodynamically stable. Significant distress with great deal of abdominal tenderness and guarding on exam. IV access was established. Given IV hydromorphone to monitor carefully after this medication as well as IV hydration and medication for nausea. Subsequently identified to have acute appendicitis. There is an elevation in LFTs and T. bili. Patient does report that he drinks on a daily basis although denies any recent binge drinking episodes. This could account for his elevation in LFTs however possibility for gallstone pancreatitis should be evaluated. Ultrasonography is pending at this time to the right upper quadrant. We will be signing out to the oncoming physician, please see their documentation for further detail. Departure - Departure Disposition: 02 Transfer Acute Care Hosp Clinical Impression: Pancreatitis, Leukocytosis, Cholecystitis, Lactic acidosis Condition: Serious Discharge Date/Time: 03/16/23 19:05
[2023-03-16] MEDS: metroNIDAZOLE 500 MG/100 ML 500 MG/100 ML BAG IV SCH ×2 (06:06→13:05)
[2023-03-16] MEDS ORDERED: iohexoL-300 100 ML VIAL IVP ONE (06:07)
[2023-03-16] MEDS ORDERED: HYDROmorphone 0.5 MG/0.5 ML SYRINGE IVP STA (06:15)
--- NOTE | 2023-03-16 08:37 | CT Report ---
PROCEDURE: ABDOMEN/PELVIS W INDICATIONS: abd pain CONTRAST: Omni 300 100ml TECHNIQUE: After the administration of contrast, 5 mm thick sections acquired from the diaphragms to the symphys is. 5 mm thick coronal and sagittal reformats were acquired. For radiation dose reduction, the foll owing was used: automated exposure control, adjustment of mA and/or kV according to patient size. COMPARISON: None FINDINGS: Image quality: Excellent. Lung bases and heart: Unremarkable. Liver: No solid mass. Gallbladder and biliary tree: Normal Spleen: No splenomegaly. Pancreas: There is fat stranding adjacent to the head and body of the pancreas and surrounding the se cond portion of the duodenum. No gas or calcification within the pancreatic bed. No pseudocyst. No pa ncreatic ductal dilatation. Adrenals: No adrenal nodule. Kidneys and ureters: No hydronephrosis. No renal cystic lesion which requires follow up. No solid mas s. Bowel and peritoneum: No bowel distension. No pathologic free fluid. Lymph nodes: No central or retroperitoneal adenopathy. Vessels: No infrarenal aortic aneurysm. PELVIS Reproductive organs: Unremarkable. Bladder: No abnormal wall thickening, accounting for underdistension. Pelvic lymph nodes: No pelvic adenopathy by size criteria. Bones: No aggressive osseous abnormality. Other: No significant ventral or inguinal hernia. IMPRESSION: Acute pancreatitis suspected. No pseudocyst or other complication. Findings above correspond with preliminary findings by [facility]. Reviewed by: Gavin Roman on 03/16/2023 7:36 AM NATASHA Approved by: Gavin Roman on 03/16/2023 7:36 AM NATASHA Station ID: [id number]
[2023-03-16] MEDS ORDERED: ONDANSETRON 4 MG/2 ML VIAL ONE (10:33)
--- NOTE | 2023-03-16 11:30 | Ultrasound Report ---
PROCEDURE: Abdomen Limited INDICATIONS: gall stones, pancreatitis TECHNIQUE: Real-time focused scanning was performed of the abdomen, with image documentation. COMPARISONS: None. FINDINGS: Liver: The liver has a normal size. Hepatic parenchyma demonstrates increased echogenicity consisten t with hepatic steatosis. Gallbladder: The gallbladder contains multiple echogenic foci which are nonmobile and adherent to the gallbladder wall. These measure up to 10 mm. Biliary ducts: Intrahepatic bile ducts are non-dilated. Extrahepatic bile duct caliber measures 6.4 mm. Normal is 6-7 mm or less in diameter, or 10 mm or less post-cholecystectomy. Pancreas: Not well visualized due to bowel gas. Right kidney: Normal in size and echotexture. Right kidney measures 10.8 cm long. No hydronephrosis or nephrolithiasis. No solid masses. No complex renal cystic lesions which require follow-up. Aorta: Not well seen. IVC: Intrahepatic inferior vena cava is patent. Miscellaneous: No free abdominal fluid. IMPRESSION: 1. No acute ultrasound abnormality. 2. Hepatic steatosis. 3. Gallbladder polyps versus stones. Given the size, recommend nonemergent surgical referral. Reviewed by: Gavin Roman on 03/16/2023 10:29 AM NATASHA Approved by: Gavin Roman on 03/16/2023 10:29 AM NATASHA Station ID: [id number]
--- NOTE | 2023-03-16 13:19 | ED Physician Documentation ---
ED Addendum - Addendum Addendum: 03/16/23 13:16 The patient was signed out to me at change of shift, pending ultrasound and final disposition after presenting to the emergency department with abdominal pain and nausea and being found to have elevated LFTs, lipase, white count, and lactic acid level. CT scan head showed significant pancreatitis with widespread edema and gallstones. Ultrasound was pending at the time of signout and subsequently showed thickening of the gallbladder wall but only partial visualization of the common bile duct. No obvious stone or dilatation. I discussed the case with both Dr. Chirinos and Dr. Izquierdo and ultimately, it was decided that the best plan for this patient was transfer. I subsequently spoke with Dr. Munira Mcgrath, the on-call hospitalist at [facility], and she stated that she would accept the patient in transfer. At this point in time, patient is waiting bed assignment and will be transferred. He has been advised of the plan. Final impression: 1. Pancreatitis 2. Cholecystitis 3. Lactic acidosis 4. Leukocytosis. Disposition: Transfer to [facility] in serious condition.
[2023-03-16] MEDS ORDERED: HYDROmorphone 1 MG/ML CARPUJECT IVP PRN (18:01)
[2023-03-16 18:38] VITALS: BP 149/90
== END 2023-03-16 19:05 | disposition short-term general hospital (02) ==
LOC: ED 03:23
DX: K85.90 Acute pancreatitis without necrosis or infection, unspecified (principal); D72.829 Elevated white blood cell count, unspecified; K81.9 Cholecystitis, unspecified; E87.20 Acidosis, unspecified
CPT/HCPCS: 36415; 74177; 76705; 80053; 83605; 83690; 85025; 96365; 96366; 96375; 96376; 99284; 99285; G0480; J1170; Q9967; 80320

== ENCOUNTER 2023-04-04 11:31 | Outpatient (CLI) | payer MEDICARE ==
[2023-04-04 11:46] LABS: BASOPHILS % (AUTO) 0.4 %; EOSINOPHILS # (AUTO) 0.2 10^3/uL (0.0-0.7); EOSINOPHILS % (AUTO) 2.3 %; HCT - HEMATOCRIT 43.7 % (42.0-52.0); HGB - HEMOGLOBIN 14.3 g/dL (14.0-18.0); LYMPHOCYTES # (AUTO) 1.1 10^3/uL (1.5-3.5); LYMPHOCYTES % (AUTO) 11.5 %; MEAN CORPUSCULAR HEMOGLOBIN 30.5 pg (27.0-31.0); MEAN CORPUSCULAR HGB CONC 32.7 g/dL (32.0-36.0); MEAN CORPUSCULAR VOLUME 93.2 fL (80.0-94.0); MEAN PLATELET VOLUME 9.4 fL (7.4-11.4); MONOCYTES # (AUTO) 0.6 10^3/uL (0.0-1.0); MONOCYTES % (AUTO) 6.2 %; NEUTROPHILS # (AUTO) 7.6 10^3/uL (1.5-6.6); NEUTROPHILS % (AUTO) 78.1 %; PLT - PLATELET COUNT 505 10^3/uL (130-450); RED BLOOD COUNT 4.69 10^6/uL (4.70-6.10); RED CELL DISTRIBUTION WIDTH 14.6 % (12.0-15.0); WHITE BLOOD COUNT 9.8 x10^3/uL (4.8-10.8)
[2023-04-04 11:56] LABS: ALBUMIN 3.7 g/dL (3.2-5.5); BILIRUBIN,TOTAL 0.9 mg/dL (0.2-1.0); CALCIUM 9.7 mg/dL (8.5-10.3); CREATININE 0.7 mg/dL (0.6-1.3); POTASSIUM 4.1 mmol/L (3.5-4.5); TOTAL PROTEIN 7.4 g/dL (6.4-8.9)
== END 2023-04-04 11:32 | disposition home or self-care (01) ==
LOC: LAB 11:31
PROVIDERS: ATTEND Internal Medicine
DX: K85.90 Acute pancreatitis without necrosis or infection, unspecified (principal)
CPT/HCPCS: 36415; 80053; 82150; 83690; 85025

== ENCOUNTER 2023-08-07 09:06 | Outpatient (CLI) | payer MEDICARE ==
[2023-08-07 09:26] LABS: EOSINOPHILS # (AUTO) 0.1 10^3/uL (0.0-0.7); EOSINOPHILS % (AUTO) 3.5 %; HCT - HEMATOCRIT 51.1 % (42.0-52.0); HGB - HEMOGLOBIN 16.3 g/dL (14.0-18.0); LYMPHOCYTES # (AUTO) 0.9 10^3/uL (1.5-3.5); LYMPHOCYTES % (AUTO) 21.7 %; MEAN CORPUSCULAR HEMOGLOBIN 28.2 pg (27.0-31.0); MEAN CORPUSCULAR HGB CONC 31.9 g/dL (32.0-36.0); MEAN CORPUSCULAR VOLUME 88.3 fL (80.0-94.0); MEAN PLATELET VOLUME 10.1 fL (7.4-11.4); MONOCYTES # (AUTO) 0.2 10^3/uL (0.0-1.0); MONOCYTES % (AUTO) 5.7 %; NEUTROPHILS # (AUTO) 2.8 10^3/uL (1.5-6.6); NEUTROPHILS % (AUTO) 67.9 %; PLT - PLATELET COUNT 212 10^3/uL (130-450); RED BLOOD COUNT 5.79 10^6/uL (4.70-6.10); RED CELL DISTRIBUTION WIDTH 16.1 % (12.0-15.0); WHITE BLOOD COUNT 4.1 x10^3/uL (4.8-10.8)
[2023-08-07 09:40] LABS: CREATININE,URINE 163.8 mg/dL; MICROALBUM/CREATININE RATIO,UR 9.8 ug/mg (<30.0); MICROALBUMIN,URINE 1.6 mg/dL
[2023-08-07 09:42] LABS: ALBUMIN 4.6 g/dL (3.2-5.5); ALBUMIN/GLOBULIN RATIO 1.9 (1.0-2.2); ALKALINE PHOSPHATASE 59 IU/L (42-121); ALT ALANINE AMINOTRANSFERASE 18 IU/L (10-60); AST ASPARTATE AMINOTRANSFERASE 15 IU/L (10-42); BILIRUBIN,DIRECT 0.12 mg/dL (0.03-0.18); BILIRUBIN,TOTAL 1.3 mg/dL (0.2-1.0); BUN - BLOOD UREA NITROGEN 12 mg/dL (6-20); CALCIUM 9.6 mg/dL (8.5-10.3); CARBON DIOXIDE - CO2 29 mmol/L (21-32); CHLORIDE 106 mmol/L (101-111); CHOL/HDL RATIO 3.4 (<5.0); CHOLESTEROL 177 mg/dL; CREATININE 0.8 mg/dL (0.6-1.3); GFR - MDRD 96 (>89); GLUCOSE 109 mg/dL (74-104); HDL CHOLESTEROL 52 mg/dL; LDL CHOLESTEROL,CALCULATED 101 mg/dL; LDL/HDL RATIO 1.9 (<3.6); POTASSIUM 4.2 mmol/L (3.5-4.5); SODIUM 139 mmol/L (135-145); TRIGLYCERIDES 121 mg/dL (48-352); VLDL CHOLESTEROL 24 mg/dL
[2023-08-07 10:54] LABS: ESTIMATED AVERAGE GLUCOSE 103 mg/dL (70-100); HEMOGLOBIN A1c% 5.2 % (4.27-6.07)
== END 2023-08-07 09:07 | disposition home or self-care (01) ==
LOC: LAB 09:06
PROVIDERS: ATTEND Internal Medicine Gastroenterology
DX: K85.90 Acute pancreatitis without necrosis or infection, unspecified (principal); K80.20 Calculus of gallbladder without cholecystitis without obstruction; I10 Essential (primary) hypertension; E78.5 Hyperlipidemia, unspecified; R73.01 Impaired fasting glucose; N40.1 Benign prostatic hyperplasia with lower urinary tract symptoms
CPT/HCPCS: 36415; 80053; 80061; 82043; 82248; 82570; 83036; 83721; 84153; 85025

== ENCOUNTER 2024-05-12 09:35 | Outpatient (CLI) | payer MEDICARE ==
[2024-05-12 09:46] LABS: BASOPHILS # (AUTO) 0.1 10^3/uL (0.0-0.1); EOSINOPHILS # (AUTO) 0.2 10^3/uL (0.0-0.7); EOSINOPHILS % (AUTO) 3.8 %; HCT - HEMATOCRIT 49.1 % (42.0-52.0); HGB - HEMOGLOBIN 16.4 g/dL (14.0-18.0); LYMPHOCYTES # (AUTO) 0.9 10^3/uL (1.5-3.5); MEAN CORPUSCULAR HEMOGLOBIN 30.4 pg (27.0-31.0); MEAN CORPUSCULAR HGB CONC 33.4 g/dL (32.0-36.0); MEAN CORPUSCULAR VOLUME 90.9 fL (80.0-94.0); MEAN PLATELET VOLUME 10.1 fL (7.4-11.4); MONOCYTES # (AUTO) 0.3 10^3/uL (0.0-1.0); MONOCYTES % (AUTO) 6.5 %; NEUTROPHILS # (AUTO) 3.5 10^3/uL (1.5-6.6); NEUTROPHILS % (AUTO) 70.5 %; PLT - PLATELET COUNT 193 10^3/uL (130-450); RED CELL DISTRIBUTION WIDTH 14.1 % (12.0-15.0)
[2024-05-12 10:00] LABS: ALBUMIN 4.3 g/dL (3.2-5.5); ALBUMIN/GLOBULIN RATIO 1.8 (1.0-2.2); ALKALINE PHOSPHATASE 48 IU/L (42-121); ALT ALANINE AMINOTRANSFERASE 25 IU/L (10-60); AST ASPARTATE AMINOTRANSFERASE 19 IU/L (10-42); BILIRUBIN,TOTAL 1.7 mg/dL (0.2-1.0); BUN - BLOOD UREA NITROGEN 15 mg/dL (6-20); CARBON DIOXIDE - CO2 26 mmol/L (21-32); CHLORIDE 107 mmol/L (101-111); CHOL/HDL RATIO 3.4 (<5.0); CHOLESTEROL 171 mg/dL; GFR - MDRD 74 (>89); GLUCOSE 113 mg/dL (74-104); HDL CHOLESTEROL 50 mg/dL; LDL CHOLESTEROL,CALCULATED 92 mg/dL; LDL/HDL RATIO 1.8 (<3.6); POTASSIUM 4.1 mmol/L (3.5-4.5); SODIUM 138 mmol/L (135-145); TOTAL PROTEIN 6.7 g/dL (6.4-8.9); TRIGLYCERIDES 147 mg/dL; VLDL CHOLESTEROL 29 mg/dL
[2024-05-12 10:02] LABS: ESTIMATED AVERAGE GLUCOSE 100 mg/dL (70-100); HEMOGLOBIN A1c% 5.1 % (4.27-6.07)
== END 2024-05-12 09:36 | disposition home or self-care (01) ==
LOC: LAB 09:35
PROVIDERS: ATTEND Internal Medicine
DX: I10 Essential (primary) hypertension (principal); Z13.220 Encounter for screening for lipoid disorders; R73.01 Impaired fasting glucose; N40.1 Benign prostatic hyperplasia with lower urinary tract symptoms
CPT/HCPCS: 36415; 80053; 80061; 83036; 83721; 84153; 85025